=== PATIENT | female | born 1970 | race Caucasian/White ===

== ENCOUNTER 2016-07-15 16:54 | Emergency (ER) | payer MEDICARE ==
[2016-07-15] MEDS ORDERED: diphenhydrAMINE INJ 50MG/ML VIAL (J1200) As Ordered ONE (18:38)
[2016-07-15] MEDS ORDERED: MORPHINE 2 MG/ML 1ML SYRINGE As Ordered ONE (18:38)
[2016-07-15] MEDS ORDERED: METOCLOPRAMIDE INJ 10MG/2ML VIAL (J2765) As Ordered ONE (18:38)
--- NOTE | 2016-07-15 18:46 | REP ---
Clinical: Headache. History of pituitary tumor. Comparison: 05/16/2015 . Findings: The ventricles, sulci, and cisterns are normal in position and appearance. Alanis-white differentiation is maintained. No acute intracranial hemorrhage, mass/mass effect, pathology or trauma/injury. No evidence for acute infarction. No extra-axial fluid collection. The sella turcica appears normal by noncontrast CT. Calvarium is intact. Paranasal sinuses and mastoid air cells are clear. Impression: Normal noncontrast head CT. No evidence for acute intracranial pathology or trauma/injury. Signed by Mamadou Jarrett MD 07/15/2016 06:37 P
[2016-07-15 18:50] LABS: BASO # 0.1 K/mm3 (0.0-0.2); EOS # 0.1 K/mm3 (0.0-0.50); EOS % 1.9 % (0.0-3.0); LARGE UNSTAINED CELL # 0.2 K/mm3 (0.0-0.4); LARGE UNSTAINED CELL % 2.7 % (0.0-4.0); MEAN CORPUSCULAR HEMOGLOBIN 32.9 pg (27.0-33.0); MEAN CORPUSCULAR HGB CONC 34.2 g/dl (32.0-36.5); MEAN CORPUSCULAR VOLUME 96.2 fl (80.0-96.0); MONO # 0.6 K/mm3 (0.0-0.8); MONO % 8.7 % (0.0-5.0); NEUTROPHILS # 3.9 K/mm3 (1.8-7.7); NEUTROPHILS % 58.6 % (36.0-66.0); PLATELET COUNT, AUTOMATED 261 k/mm3 (150-450); RED CELL DISTRIBUTION WIDTH 12.5 % (11.5-14.5); WHITE BLOOD COUNT 6.6 K/mm3 (4.0-10.0)
[2016-07-15 19:07] LABS: ANION GAP 8 MEQ/L (8-16); BLOOD UREA NITROGEN 16 MG/DL (7-18); CALCIUM LEVEL 8.8 MG/DL (8.5-10.1); CARBON DIOXIDE LEVEL 26 MEQ/L (21-32); CHLORIDE LEVEL 109 MEQ/L (98-107); CREATININE FOR GFR 0.63 MG/DL (0.55-1.02); GLOMERULAR FILTRATION RATE > 60.0 (>58); GLUCOSE, FASTING 99 MG/DL (70-105); POTASSIUM SERUM 4.2 MEQ/L (3.5-5.1); SODIUM LEVEL 143 MEQ/L (136-145)
--- NOTE | 2016-07-15 19:50 | EDDOCDS ---
Physician Documentation [facility] Name: Joseph Harmon Age: 46 yrs Sex: Female : 1970 Arrival Date: 07/15/2016 Time: 16:54 Bed I6 / 28 Private MD: Misha Walker Disposition: 07/15/16 19:24 Discharged to Home/Self Care. Impression: Migraine without aura, not intractable. - Condition is Stable. - Discharge Instructions: General Headache Without Cause, Migraine Headache. - Medication Reconciliation, Local Pharmacy Hours form. - Follow up: Misha Walker; When: Call to arrange an appointment; Reason: Recheck today's complaints, Continuance of care. - Problem is an acute exacerbation. - Symptoms have improved. Historical: - Allergies: Codeine Sulfate (Anaphylaxis); - Home Meds: 1. Robaxin 500 mg Oral tab 4 times per day 2. Flonase 50 mcg/actuation Nasal spsn 1 spray once daily 3. Dilantin Oral 200 mg four times a day 4. baclofen 20 mg Oral tab 1 tab 3 times per day 5. Prozac 20 mg Oral cap 1 cap once daily - PMHx: Brain tumor; Cancer, Brain; Migraine Headaches; Seizure Disorder; TBI; - PSHx: Fibroid tumor removed September 2015; - Social history: Smoking status: Patient states was never smoker of tobacco. No barriers to communication noted, The patient speaks fluent Italian, Speaks appropriately for age. - Family history: Not pertinent. - : The pt / caregiver states he / she is not on anticoagulants. Home medication list is obtained from the patient. - Exposure Risk Screening:: None identified. TRANSPORTER RADIOLOGY: 07/15 17:08 LMP 06/28/2016 b Vital Signs: 16:56 BP 91 / 54 LA Sitting (auto/lg); Pulse 75; Resp 16; Temp 97.1(O); Pulse Ox 97% on R/A; bnb Weight 46.27 kg / 102.01 lbs (R); Height 5 ft. (152.40 cm) (R); Pain 9/10; 16:56 Body Mass Index 19.92 (46.27 kg, 152.40 cm) bnb MDM: 18:25 IV Saline Lock ordered. mo1 18:25 NS 0.9% 1000 ml IV at bolus once ordered. mo1 18:25 morphine 2 mg IVP once ordered. mo1 18:25 Metoclopramide 10 mg IV at 40 mg/hr once over 15 mins ordered. mo1 18:25 diphenhydrAMINE 25 mg IVP once ordered. mo1 18:26 CBC with Diff Ordered. EDMS 18:26 BMP Ordered. EDMS 18:26 CT Head Without Contrast Ordered. EDMS 18:58 Financial registration complete. gjb 19:07 CBC with Diff Reviewed. mo1 19:14 BMP Reviewed. mo1 19:19 [facility] Payment Agreement was scanned into [employer] and attached to record. gjb Administered Medications: 18:47 Drug: Metoclopramide 10 mg [metoclopramide 5 mg/mL injection solution] Route: IV; Rate: mk4 40 mg/hr; Infused Over: 15 mins; Site: right hand; 19:48 Follow up: Response: Pain is decreased mf4 18:47 Drug: diphenhydrAMINE 25 mg [diphenhydramine 50 mg/mL injection solution (0.5 mL)] mk4 Route: IVP; Site: right hand; 19:48 Follow up: Response: Pain is decreased mf4 18:48 Drug: NS 0.9% 1000 ml [sodium chloride 0.9 % intravenous solution] Route: IV; Rate: mk4 bolus; Site: right hand; 18:48 Drug: morphine 2 mg [morphine 2 mg/mL intravenous cartridge (1 mL)] Route: IVP; Site: mk4 right antecubital; 19:48 Follow up: Response: Pain is decreased mf4 Signatures: Dispatcher [employer] EDMS Vikram Reynolds,LICENSED AIRCRAFT MAINTENANCE ENGINEER LICENSED AIRCRAFT MAINTENANCE ENGINEER mf4 Adama Mckenna PA PA mo1 Terrence SchmidtRN RN Mer Newton RN RN kc3 Beck, Gabriela gjb King, Margaret RN mk4 The chart was reviewed and I authenticate all verbal orders and agree with the evaluation and treatment provided.Attachments: 19:19 [facility] Payment Agreement gjb MTDD
--- NOTE | 2016-07-15 19:51 | EDDOCDS ---
Nurse's Notes [facility] Name: Joseph Harmon Age: 46 yrs Sex: Female : 1970 Arrival Date: 07/15/2016 Time: 16:54 Bed I6 / 28 Private MD: Misha Walker Diagnosis: Migraine without aura, not intractable Presentation: 07/15 17:07 Presenting complaint: Patient states: Patient reports having migraine. Patient reports jmb that the pain is bad. Dr. Walker was not available last week so she has no medication for treatment. Patient has history of migraines. This patient has no additional risk factors. Adult Sepsis Screening: The patient does not have new or worsening altered mentation. Patient's respiratory rate is less than 22. Systolic blood pressure is greater than 100. Patient has a qSOFA score of 0- Negative Sepsis Screen. Acuity level changed due to. Suicide/Homicide risk assessment- the patient denies having any suicidal and/or homicidal ideations and does not present with any other emotional, behavioral or mental health complaints. Status: Patient is not a x ray service technician or dependent. Transition of care: patient was not received from another setting of care. 17:07 Acuity: ELIESER Level 3 [place] 17:07 Method Of Arrival: Walkin/Carried/Asstd [place] Triage Assessment: 17:08 Headache History: This patient has a history of headaches and the character of this [place] headache is like all previous headaches. General: Appears in no apparent distress, Behavior is appropriate for age, cooperative. Pain: Location: head Pain currently is 9 out of 10 on a pain scale. Pain began gradually Also complains of no other associated symptoms. HIV screening NA for this visit Offered previously. Neurological: Level of Consciousness is awake, alert, obeys commands, Oriented to person, place, time, Speech is normal, Facial symmetry appears normal, Facial symmetry: tongue is midline. Respiratory: Airway is patent Respiratory effort is even, unlabored, Respiratory pattern is regular, symmetrical. Derm: Skin is pink, warm & dry. RESIDENT ASSISTANT: 17:08 LMP 06/28/2016 b Historical: - Allergies: Codeine Sulfate (Anaphylaxis); - Home Meds: 1. Robaxin 500 mg Oral tab 4 times per day 2. Flonase 50 mcg/actuation Nasal spsn 1 spray once daily 3. Dilantin Oral 200 mg four times a day 4. baclofen 20 mg Oral tab 1 tab 3 times per day 5. Prozac 20 mg Oral cap 1 cap once daily - PMHx: Brain tumor; Cancer, Brain; Migraine Headaches; Seizure Disorder; TBI; - PSHx: Fibroid tumor removed September 2015; - Social history: Smoking status: Patient states was never smoker of tobacco. No barriers to communication noted, The patient speaks fluent Iraqi, Speaks appropriately for age. - Family history: Not pertinent. - : The pt / caregiver states he / she is not on anticoagulants. Home medication list is obtained from the patient. - Exposure Risk Screening:: None identified. Screenin:04 Screening information is obtained from the patient. Fall risk: No risks identified. kc3 Assistance ADL's: requires no assistance with activities of daily living. Abuse/DV Screen: The patient / caregiver reports he/she is: not in a situation that causes fear, pain or injury. Nutritional screening: No deficits noted. Advance Directives: Currently, there is no health care proxy. home support is adequate. Assessment: 19:03 General: Appears uncomfortable, Behavior is appropriate for age, cooperative. Pain: kc3 Location: head. Pain: Pain currently is 6 out of 10 on a pain scale. Also complains of photophobia. Neurological: Level of Consciousness is awake, alert, obeys commands, Oriented to person, place, time. Respiratory: Respiratory effort is even, unlabored. Derm: Skin is pink, warm & dry. Vital Signs: 16:56 BP 91 / 54 LA Sitting (auto/lg); Pulse 75; Resp 16; Temp 97.1(O); Pulse Ox 97% on R/A; bnb Weight 46.27 kg (R); Height 5 ft. (152.40 cm) (R); Pain 9/10; 16:56 Body Mass Index 19.92 (46.27 kg, 152.40 cm) [facility] Vitals: 16:56 Log In Time: July 15, 2016 at 16:55. [facility] ED Course: 16:55 Patient visited by Katlyn Schmidt PCA. bnb 16:55 Patient moved to Waiting b 16:56 Misha Walker is Private Physician. bnb 16:58 Patient moved to Pre RCE bnb 17:07 Triage Initiated jmb 18:06 Patient moved to Triage 3 ar3 18:11 Adama Mckenna PA is PHCP. mo1 18:11 Rosa Maria Hanks MD is Attending Physician. mo1 18:15 Patient visited by Adama Mckenna PA. mo1 18:27 Patient moved to I6 / ar3 18:42 BMP Sent. kc3 18:42 CBC with Diff Sent. kc3 18:44 Inserted saline lock: 20 gauge in right hand and blood collected. The patient tolerated kc3 the procedure well. 18:46 Patient visited by Bia Becker RN. mk4 19:04 The patient / caregiver is instructed regarding the plan of care and ED course. kc3 19:19 [facility] [place] was scanned into [employer] and attached to record. gjb 19:24 Patient visited by Bia Becker RN. mk4 19:24 Misha Walker is Referral Physician. mo1 19:26 CT Head Without Contrast Returned. EDMS 19:49 No procedures done that require assistance. mf4 Administered Medications: 18:47 Drug: Metoclopramide 10 mg [metoclopramide 5 mg/mL injection solution] Route: IV; Rate: mk4 40 mg/hr; Infused Over: 15 mins; Site: right hand; 19:48 Follow up: Response: Pain is decreased mf4 18:47 Drug: diphenhydrAMINE 25 mg [diphenhydramine 50 mg/mL injection solution (0.5 mL)] mk4 Route: IVP; Site: right hand; 19:48 Follow up: Response: Pain is decreased mf4 18:48 Drug: NS 0.9% 1000 ml [sodium chloride 0.9 % intravenous solution] Route: IV; Rate: mk4 bolus; Site: right hand; 18:48 Drug: morphine 2 mg [morphine 2 mg/mL intravenous cartridge (1 mL)] Route: IVP; Site: mk4 right antecubital; 19:48 Follow up: Response: Pain is decreased mf4 Order Results: Lab Order: CBC with Diff; SPEC'M 07/15/16 18:41 Test: WHITE BLOOD COUNT; Value: 6.6; Range: 4.0-10.0; Units: K/mm3; Status: F Test: RED BLOOD COUNT; Value: 4.00; Range: 4.00-5.40; Units: M/mm3; Status: F Test: HEMOGLOBIN; Value: 13.1; Range: 12.0-16.0; Units: g/dl; Status: F Test: HEMATOCRIT; Value: 38.4; Range: 36.0-47.0; Units: %; Status: F Test: MEAN CORPUSCULAR VOLUME; Value: 96.2; Range: 80.0-96.0; Abnormal: Above high normal; Units: fl; Status: F Test: MEAN CORPUSCULAR HEMOGLOBIN; Value: 32.9; Range: 27.0-33.0; Units: pg; Status: F Test: MEAN CORPUSCULAR HGB CONC; Value: 34.2; Range: 32.0-36.5; Units: g/dl; Status: F Test: RED CELL DISTRIBUTION WIDTH; Value: 12.5; Range: 11.5-14.5; Units: %; Status: F Test: PLATELET COUNT, AUTOMATED; Value: 261; Range: 150-450; Units: k/mm3; Status: F Test: NEUTROPHILS %; Value: 58.6; Range: 36.0-66.0; Units: %; Status: F Test: LYMPH %; Value: 27.0; Range: 24.0-44.0; Units: %; Status: F Test: MONO %; Value: 8.7; Range: 0.0-5.0; Abnormal: Above high normal; Units: %; Status: F Test: EOS %; Value: 1.9; Range: 0.0-3.0; Units: %; Status: F Test: BASO %; Value: 1.0; Range: 0.0-1.0; Units: %; Status: F Test: LARGE UNSTAINED CELL %; Value: 2.7; Range: 0.0-4.0; Units: %; Status: F Test: NEUTROPHILS #; Value: 3.9; Range: 1.8-7.7; Units: K/mm3; Status: F Test: LYMPH #; Value: 2.0; Range: 1.5-4.5; Units: K/mm3; Status: F Test: MONO #; Value: 0.6; Range: 0.0-0.8; Units: K/mm3; Status: F Test: EOS #; Value: 0.1; Range: 0.0-0.50; Units: K/mm3; Status: F Test: BASO #; Value: 0.1; Range: 0.0-0.2; Units: K/mm3; Status: F Test: LARGE UNSTAINED CELL #; Value: 0.2; Range: 0.0-0.4; Units: K/mm3; Status: F Lab Order: [facility]; SPEC'M 07/15/16 18:41 Test: GLUCOSE, FASTING; Value: 99; Range: 70-105; Units: MG/DL; Status: F Test: BLOOD UREA NITROGEN; Value: 16; Range: 7-18; Units: MG/DL; Status: F Test: CREATININE FOR GFR; Value: 0.63; Range: 0.55-1.02; Units: MG/DL; Status: F Test: GLOMERULAR FILTRATION RATE; Value: > 60.0; Range: >58; Status: F Test: SODIUM LEVEL; Value: 143; Range: 136-145; Units: MEQ/L; Status: F Test: POTASSIUM SERUM; Value: 4.2; Range: 3.5-5.1; Units: MEQ/L; Status: F Test: CHLORIDE LEVEL; Value: 109; Range: 98-107; Abnormal: Above high normal; Units: MEQ/L; Status: F Test: CARBON DIOXIDE LEVEL; Value: 26; Range: 21-32; Units: MEQ/L; Status: F Test: ANION GAP; Value: 8; Range: 8-16; Units: MEQ/L; Status: F Test: CALCIUM LEVEL; Value: 8.8; Range: 8.5-10.1; Units: MG/DL; Status: F Test Note: ; Units are mL/min/1.73 m2 Chronic Kidney Disease Staging per NKF: Stage I & II GFR >=60 Normal to Mildly Decreased Stage III GFR 30-59 Moderately Decreased Stage IV GFR 15-29 Severely Decreased Stage V GFR <15 Very Little GFR Left ESRD GFR <15 on AUCTION CLERK Radiology Order: CT Head Without Contrast Test: CT Head Without Contrast REASON FOR EXAMINATION: hx of pituitary tumor, recurring zhao; Clinical: Headache. History of pituitary tumor.; ; Comparison: 05/16/2015 .; ; Findings:; The ventricles, sulci, and cisterns are normal in position and appearance.; Alanis-white differentiation is maintained. No acute intracranial hemorrhage,; mass/mass effect, pathology or trauma/injury. No evidence for acute infarction.; No extra-axial fluid collection. The sella turcica appears normal by noncontrast; CT. Calvarium is intact. Paranasal sinuses and mastoid air cells are clear.; ; Impression:; Normal noncontrast head CT.; No evidence for acute intracranial pathology or trauma/injury.; ; ; Signed by; Mamadou Jarrett MD 07/15/2016 06:37 P; Outcome: 19:24 Discharge ordered by Provider. mo1 19:49 Discharge Assessment: Patient awake, alert and oriented x 3. No cognitive and/or mf4 functional deficits noted. Patient verbalized understanding of disposition instructions. patient administered narcotics - yes. Pt provided with safe discharge. The following High Risk Discharge criteria are identified: None. Discharged to home ambulatory. Condition: stable Condition: improved. No special radiology studies were completed. Property sent home with patient. 19:49 Patient left the ED. mf4 Signatures: Dispatcher [employer] EDMS Roseann Deleon, PROFESSOR OF ARCHITECTURE PROFESSOR OF ARCHITECTURE ar3 Vikram Reynolds,ACID ADJUSTER ACID ADJUSTER mf4 Adama Mckenna PA PA mo1 Terrence Schmidt,RN Bia Priest RN RN mk4 Crane, Kelsi, RN RN kc3 Odessa Albarran Brittney, PROFESSOR OF ARCHITECTURE PROFESSOR OF ARCHITECTURE bnb MTDD
--- NOTE | 2016-07-17 20:50 | EDDOCDS ---
Physician Documentation [facility] Name: Joseph Harmon Age: 46 yrs Sex: Female : 1970 Arrival Date: 07/15/2016 Time: 16:54 Bed I6 / 28 Private MD: Misha Walker Disposition: 07/15/16 19:24 Discharged to Home/Self Care. Impression: Migraine without aura, not intractable. - Condition is Stable. - Discharge Instructions: General Headache Without Cause, Migraine Headache. - Medication Reconciliation, Local Pharmacy Hours form. - Follow up: Misha Walker; When: Call to arrange an appointment; Reason: Recheck today's complaints, Continuance of care. - Problem is an acute exacerbation. - Symptoms have improved. Historical: - Allergies: Codeine Sulfate (Anaphylaxis); - Home Meds: 1. Robaxin 500 mg Oral tab 4 times per day 2. Flonase 50 mcg/actuation Nasal spsn 1 spray once daily 3. Dilantin Oral 200 mg four times a day 4. baclofen 20 mg Oral tab 1 tab 3 times per day 5. Prozac 20 mg Oral cap 1 cap once daily - PMHx: Brain tumor; Cancer, Brain; Migraine Headaches; Seizure Disorder; TBI; - PSHx: Fibroid tumor removed September 2015; - Social history: Smoking status: Patient states was never smoker of tobacco. No barriers to communication noted, The patient speaks fluent Macedonian, Speaks appropriately for age. - Family history: Not pertinent. - : The pt / caregiver states he / she is not on anticoagulants. Home medication list is obtained from the patient. - Exposure Risk Screening:: None identified. NIGHT ORDER SELECTOR: 07/15 17:08 LMP 06/28/2016 b Vital Signs: 16:56 BP 91 / 54 LA Sitting (auto/lg); Pulse 75; Resp 16; Temp 97.1(O); Pulse Ox 97% on R/A; bnb Weight 46.27 kg / 102.01 lbs (R); Height 5 ft. (152.40 cm) (R); Pain 9/10; 16:56 Body Mass Index 19.92 (46.27 kg, 152.40 cm) bnb MDM: 18:25 IV Saline Lock ordered. mo1 18:25 NS 0.9% 1000 ml IV at bolus once ordered. mo1 18:25 morphine 2 mg IVP once ordered. mo1 18:25 Metoclopramide 10 mg IV at 40 mg/hr once over 15 mins ordered. mo1 18:25 diphenhydrAMINE 25 mg IVP once ordered. mo1 18:26 CBC with Diff Ordered. EDMS 18:26 BMP Ordered. EDMS 18:26 CT Head Without Contrast Ordered. EDMS 18:58 Financial registration complete. gjb 19:07 CBC with Diff Reviewed. mo1 19:14 BMP Reviewed. mo1 19:19 [facility] [place] Payment Agreement was scanned into [employer] and attached to record. [facility] 07/16 10:20 T-Sheet-- Draft Copy was scanned into [employer] and attached to record. gb Administered Medications: 07/15 18:47 Drug: Metoclopramide 10 mg [metoclopramide 5 mg/mL injection solution] Route: IV; Rate: mk4 40 mg/hr; Infused Over: 15 mins; Site: right hand; 19:48 Follow up: Response: Pain is decreased mf4 18:47 Drug: diphenhydrAMINE 25 mg [diphenhydramine 50 mg/mL injection solution (0.5 mL)] mk4 Route: IVP; Site: right hand; 19:48 Follow up: Response: Pain is decreased mf4 18:48 Drug: NS 0.9% 1000 ml [sodium chloride 0.9 % intravenous solution] Route: IV; Rate: mk4 bolus; Site: right hand; 18:48 Drug: morphine 2 mg [morphine 2 mg/mL intravenous cartridge (1 mL)] Route: IVP; Site: mk4 right antecubital; 19:48 Follow up: Response: Pain is decreased mf4 Signatures: Dispatcher [employer] EDMS Bibi Cervantes, Reg Reg gb Vikram Reynolds,PICKER / PACKER PICKER / PACKER mf4 Adama Mckenna PA PA mo1 Terrence Schmidt RN RN Mer Newton RN RN tona3 Odessa Albarran Bia Garcia RN mk4 The chart was reviewed and I authenticate all verbal orders and agree with the evaluation and treatment provided.Attachments: 19:19 [facility] Payment Agreement [facility] 07/16 10:20 T-Sheet-- Draft Copy gb Chart Complete MTDD
--- NOTE | 2016-07-17 20:50 | EDDOCDS ---
Physician Documentation [facility] Name: Joseph Harmon Age: 46 yrs Sex: Female : 1970 Arrival Date: 07/15/2016 Time: 16:54 Bed I6 / 28 Private MD: Misha Walker Disposition: 07/15/16 19:24 Discharged to Home/Self Care. Impression: Migraine without aura, not intractable. - Condition is Stable. - Discharge Instructions: General Headache Without Cause, Migraine Headache. - Medication Reconciliation, Local Pharmacy Hours form. - Follow up: Misha Walker; When: Call to arrange an appointment; Reason: Recheck today's complaints, Continuance of care. - Problem is an acute exacerbation. - Symptoms have improved. Historical: - Allergies: Codeine Sulfate (Anaphylaxis); - Home Meds: 1. Robaxin 500 mg Oral tab 4 times per day 2. Flonase 50 mcg/actuation Nasal spsn 1 spray once daily 3. Dilantin Oral 200 mg four times a day 4. baclofen 20 mg Oral tab 1 tab 3 times per day 5. Prozac 20 mg Oral cap 1 cap once daily - PMHx: Brain tumor; Cancer, Brain; Migraine Headaches; Seizure Disorder; TBI; - PSHx: Fibroid tumor removed September 2015; - Social history: Smoking status: Patient states was never smoker of tobacco. No barriers to communication noted, The patient speaks fluent Czech, Speaks appropriately for age. - Family history: Not pertinent. - : The pt / caregiver states he / she is not on anticoagulants. Home medication list is obtained from the patient. - Exposure Risk Screening:: None identified. ENGINE ASSEMBLY SUPERVISOR: 07/15 17:08 LMP 06/28/2016 b Vital Signs: 16:56 BP 91 / 54 LA Sitting (auto/lg); Pulse 75; Resp 16; Temp 97.1(O); Pulse Ox 97% on R/A; bnb Weight 46.27 kg / 102.01 lbs (R); Height 5 ft. (152.40 cm) (R); Pain 9/10; 16:56 Body Mass Index 19.92 (46.27 kg, 152.40 cm) bnb MDM: 18:25 IV Saline Lock ordered. mo1 18:25 NS 0.9% 1000 ml IV at bolus once ordered. mo1 18:25 morphine 2 mg IVP once ordered. mo1 18:25 Metoclopramide 10 mg IV at 40 mg/hr once over 15 mins ordered. mo1 18:25 diphenhydrAMINE 25 mg IVP once ordered. mo1 18:26 CBC with Diff Ordered. EDMS 18:26 BMP Ordered. EDMS 18:26 CT Head Without Contrast Ordered. EDMS 18:58 Financial registration complete. gjb 19:07 CBC with Diff Reviewed. mo1 19:14 BMP Reviewed. mo1 19:19 [facility] [place] Agreement was scanned into [employer] and attached to record. [facility] 07/16 10:20 T-Sheet-- Draft Copy was scanned into [employer] and attached to record. gb Administered Medications: 07/15 18:47 Drug: Metoclopramide 10 mg [metoclopramide 5 mg/mL injection solution] Route: IV; Rate: mk4 40 mg/hr; Infused Over: 15 mins; Site: right hand; 19:48 Follow up: Response: Pain is decreased mf4 18:47 Drug: diphenhydrAMINE 25 mg [diphenhydramine 50 mg/mL injection solution (0.5 mL)] mk4 Route: IVP; Site: right hand; 19:48 Follow up: Response: Pain is decreased mf4 18:48 Drug: NS 0.9% 1000 ml [sodium chloride 0.9 % intravenous solution] Route: IV; Rate: mk4 bolus; Site: right hand; 18:48 Drug: morphine 2 mg [morphine 2 mg/mL intravenous cartridge (1 mL)] Route: IVP; Site: mk4 right antecubital; 19:48 Follow up: Response: Pain is decreased mf4 Signatures: Dispatcher [employer] EDMS Bibi Cervantes, Reg Reg gb Vikram Reynolds,SOURCING INTERNSHIP SOURCING INTERNSHIP mf4 Adama Mckenna PA PA mo1 Terrence Schmidt RN RN Mer Newton RN RN tona3 Odessa Albarran Bia Garcia RN mk4 The chart was reviewed and I authenticate all verbal orders and agree with the evaluation and treatment provided.Attachments: 19:19 [facility] Payment Agreement [facility] 07/16 10:20 T-Sheet-- Draft Copy gb Chart Complete MTDD
--- NOTE | 2016-07-17 20:51 | EDDOCDS ---
Nurse's Notes [facility] Name: Joseph Harmon Age: 46 yrs Sex: Female : 1970 Arrival Date: 07/15/2016 Time: 16:54 Bed I6 / 28 Private MD: Misha Walker Diagnosis: Migraine without aura, not intractable Presentation: 07/15 17:07 Presenting complaint: Patient states: Patient reports having migraine. Patient reports jmb that the pain is bad. Dr. Walker was not available last week so she has no medication for treatment. Patient has history of migraines. This patient has no additional risk factors. Adult Sepsis Screening: The patient does not have new or worsening altered mentation. Patient's respiratory rate is less than 22. Systolic blood pressure is greater than 100. Patient has a qSOFA score of 0- Negative Sepsis Screen. Acuity level changed due to. Suicide/Homicide risk assessment- the patient denies having any suicidal and/or homicidal ideations and does not present with any other emotional, behavioral or mental health complaints. Status: Patient is not a computer service technician or dependent. Transition of care: patient was not received from another setting of care. 17:07 Acuity: ELIESER Level 3 [facility] 17:07 Method Of Arrival: Walkin/Carried/Asstd [facility] Triage Assessment: 17:08 Headache History: This patient has a history of headaches and the character of this [facility] headache is like all previous headaches. General: Appears in no apparent distress, Behavior is appropriate for age, cooperative. Pain: Location: head Pain currently is 9 out of 10 on a pain scale. Pain began gradually Also complains of no other associated symptoms. HIV screening NA for this visit Offered previously. Neurological: Level of Consciousness is awake, alert, obeys commands, Oriented to person, place, time, Speech is normal, Facial symmetry appears normal, Facial symmetry: tongue is midline. Respiratory: Airway is patent Respiratory effort is even, unlabored, Respiratory pattern is regular, symmetrical. Derm: Skin is pink, warm & dry. 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 Robaxin 500 mg Oral tab 4 times per day 2. Flonase 50 mcg/actuation Nasal spsn 1 spray once daily 3. Dilantin Oral 200 mg four times a day 4. baclofen 20 mg Oral tab 1 tab 3 times per day 5. Prozac 20 mg Oral cap 1 cap once daily - PMHx: Brain tumor; Cancer, Brain; Migraine Headaches; Seizure Disorder; TBI; - PSHx: Fibroid tumor removed September 2015; - Social history: Smoking status: Patient states was never smoker of tobacco. No barriers to communication noted, The patient speaks fluent [place]er, Speaks appropriately for age. - Family history: Not pertinent. - : The pt / caregiver states he / she is not on anticoagulants. Home medication list is obtained from the patient. - Exposure Risk Screening:: None identified. Screenin:04 Screening information is obtained from the patient. Fall risk: No risks identified. kc3 Assistance ADL's: requires no assistance with activities of daily living. Abuse/DV Screen: The patient / caregiver reports he/she is: not in a situation that causes fear, pain or injury. Nutritional screening: No deficits noted. Advance Directives: Currently, there is no health care proxy. home support is adequate. Assessment: 19:03 General: Appears uncomfortable, Behavior is appropriate for age, cooperative. Pain: kc3 Location: head. Pain: Pain currently is 6 out of 10 on a pain scale. Also complains of photophobia. Neurological: Level of Consciousness is awake, alert, obeys commands, Oriented to person, place, time. Respiratory: Respiratory effort is even, unlabored. Derm: Skin is pink, warm & dry. Vital Signs: 16:56 BP 91 / 54 LA Sitting (auto/lg); Pulse 75; Resp 16; Temp 97.1(O); Pulse Ox 97% on R/A; bnb Weight 46.27 kg (R); Height 5 ft. (152.40 cm) (R); Pain 9/10; 16:56 Body Mass Index 19.92 (46.27 kg, 152.40 cm) [facility] Vitals: 16:56 Log In Time: July 15, 2016 at 16:55. [facility] ED Course: 16:55 Patient visited by Katlyn Schmidt PCA. bnb 16:55 Patient moved to Waiting b 16:56 Misha Walker is Private Physician. bnb 16:58 Patient moved to Pre RCE bnb 17:07 Triage Initiated jmb 18:06 Patient moved to Triage 3 ar3 18:11 Adama Mckenna PA is PHCP. mo1 18:11 Rosa Maria Hanks MD is Attending Physician. mo1 18:15 Patient visited by Adama Mckenna PA. mo1 18:27 Patient moved to I6 / 28 ar3 18:42 BMP Sent. kc3 18:42 CBC with Diff Sent. kc3 18:44 Inserted saline lock: 20 gauge in right hand and blood collected. The patient tolerated kc3 the procedure well. 18:46 Patient visited by Bia Becker RN. mk4 19:04 The patient / caregiver is instructed regarding the plan of care and ED course. kc3 19:19 [facility] [place] Payment Agreement was scanned into [employer] and attached to record. gjb 19:24 Patient visited by Bia Becker RN. mk4 19:24 Misha Walker is Referral Physician. mo1 19:26 CT Head Without Contrast Returned. EDMS 19:49 No procedures done that require assistance. mf4 20:23 Patient name changed from Charrie\S\Zoraida\S\Harmon\S\ to Charrie\S\L\S\Harmon. EDMS 02 10:20 T-Sheet-- Draft Copy was scanned into [employer] and attached to record. gb Administered Medications: 02 18:47 Drug: Metoclopramide 10 mg [metoclopramide 5 mg/mL injection solution] Route: IV; Rate: mk4 40 mg/hr; Infused Over: 15 mins; Site: right hand; 19:48 Follow up: Response: Pain is decreased mf4 18:47 Drug: diphenhydrAMINE 25 mg [diphenhydramine 50 mg/mL injection solution (0.5 mL)] mk4 Route: IVP; Site: right hand; 19:48 Follow up: Response: Pain is decreased mf4 18:48 Drug: NS 0.9% 1000 ml [sodium chloride 0.9 % intravenous solution] Route: IV; Rate: mk4 bolus; Site: right hand; 18:48 Drug: morphine 2 mg [morphine 2 mg/mL intravenous cartridge (1 mL)] Route: IVP; Site: mk4 right antecubital; 19:48 Follow up: Response: Pain is decreased mf4 Order Results: Lab Order: CBC with Diff; SPEC'M 07/15/16 18:41 Test: WHITE BLOOD COUNT; Value: 6.6; Range: 4.0-10.0; Units: K/mm3; Status: F Test: RED BLOOD COUNT; Value: 4.00; Range: 4.00-5.40; Units: M/mm3; Status: F Test: HEMOGLOBIN; Value: 13.1; Range: 12.0-16.0; Units: g/dl; Status: F Test: HEMATOCRIT; Value: 38.4; Range: 36.0-47.0; Units: %; Status: F Test: MEAN CORPUSCULAR VOLUME; Value: 96.2; Range: 80.0-96.0; Abnormal: Above high normal; Units: fl; Status: F Test: MEAN CORPUSCULAR HEMOGLOBIN; Value: 32.9; Range: 27.0-33.0; Units: pg; Status: F Test: MEAN CORPUSCULAR HGB CONC; Value: 34.2; Range: 32.0-36.5; Units: g/dl; Status: F Test: RED CELL DISTRIBUTION WIDTH; Value: 12.5; Range: 11.5-14.5; Units: %; Status: F Test: PLATELET COUNT, AUTOMATED; Value: 261; Range: 150-450; Units: k/mm3; Status: F Test: NEUTROPHILS %; Value: 58.6; Range: 36.0-66.0; Units: %; Status: F Test: LYMPH %; Value: 27.0; Range: 24.0-44.0; Units: %; Status: F Test: MONO %; Value: 8.7; Range: 0.0-5.0; Abnormal: Above high normal; Units: %; Status: F Test: EOS %; Value: 1.9; Range: 0.0-3.0; Units: %; Status: F Test: BASO %; Value: 1.0; Range: 0.0-1.0; Units: %; Status: F Test: LARGE UNSTAINED CELL %; Value: 2.7; Range: 0.0-4.0; Units: %; Status: F Test: NEUTROPHILS #; Value: 3.9; Range: 1.8-7.7; Units: K/mm3; Status: F Test: LYMPH #; Value: 2.0; Range: 1.5-4.5; Units: K/mm3; Status: F Test: MONO #; Value: 0.6; Range: 0.0-0.8; Units: K/mm3; Status: F Test: EOS #; Value: 0.1; Range: 0.0-0.50; Units: K/mm3; Status: F Test: BASO #; Value: 0.1; Range: 0.0-0.2; Units: K/mm3; Status: F Test: LARGE UNSTAINED CELL #; Value: 0.2; Range: 0.0-0.4; Units: K/mm3; Status: F Lab Order: [facility]; SPEC'M 07/15/16 18:41 Test: GLUCOSE, FASTING; Value: 99; Range: 70-105; Units: MG/DL; Status: F Test: BLOOD UREA NITROGEN; Value: 16; Range: 7-18; Units: MG/DL; Status: F Test: CREATININE FOR GFR; Value: 0.63; Range: 0.55-1.02; Units: MG/DL; Status: F Test: GLOMERULAR FILTRATION RATE; Value: > 60.0; Range: >58; Status: F Test: SODIUM LEVEL; Value: 143; Range: 136-145; Units: MEQ/L; Status: F Test: POTASSIUM SERUM; Value: 4.2; Range: 3.5-5.1; Units: MEQ/L; Status: F Test: CHLORIDE LEVEL; Value: 109; Range: 98-107; Abnormal: Above high normal; Units: MEQ/L; Status: F Test: CARBON DIOXIDE LEVEL; Value: 26; Range: 21-32; Units: MEQ/L; Status: F Test: ANION GAP; Value: 8; Range: 8-16; Units: MEQ/L; Status: F Test: CALCIUM LEVEL; Value: 8.8; Range: 8.5-10.1; Units: MG/DL; Status: F Test Note: ; Units are mL/min/1.73 m2 Chronic Kidney Disease Staging per NKF: Stage I & II GFR >=60 Normal to Mildly Decreased Stage III GFR 30-59 Moderately Decreased Stage IV GFR 15-29 Severely Decreased Stage V GFR <15 Very Little GFR Left ESRD GFR <15 on RETIREMENT ASSISTANT Radiology Order: CT Head Without Contrast Test: CT Head Without Contrast REASON FOR EXAMINATION: hx of pituitary tumor, recurring zhao; Clinical: Headache. History of pituitary tumor.; ; Comparison: 05/16/2015 .; ; Findings:; The ventricles, sulci, and cisterns are normal in position and appearance.; Alanis-white differentiation is maintained. No acute intracranial hemorrhage,; mass/mass effect, pathology or trauma/injury. No evidence for acute infarction.; No extra-axial fluid collection. The sella turcica appears normal by noncontrast; CT. Calvarium is intact. Paranasal sinuses and mastoid air cells are clear.; ; Impression:; Normal noncontrast head CT.; No evidence for acute intracranial pathology or trauma/injury.; ; ; Signed by; Mamadou Jarrett MD 07/15/2016 06:37 P; Outcome: 19:24 Discharge ordered by Provider. mo1 19:49 Discharge Assessment: Patient awake, alert and oriented x 3. No cognitive and/or mf4 functional deficits noted. Patient verbalized understanding of disposition instructions. patient administered narcotics - yes. Pt provided with safe discharge. The following High Risk Discharge criteria are identified: None. Discharged to home ambulatory. Condition: stable Condition: improved. No special radiology studies were completed. Property sent home with patient. 19:49 Patient left the ED. mf4 Signatures: Dispatcher [employer] EDMS Bibi Cervantes, Reg Reg gb Adrienne, Roseann, RESIDENCE HALL DIRECTOR RESIDENCE HALL DIRECTOR ar3 Vikram Reynolds,GLOBAL PRESIDENT GLOBAL PRESIDENT mf4 Adama Mckenna PA PA mo1 Terrence Schmidt, RN RN Bia Echeverria RN RN mkMer Caraballo RN RN tona3 Odessa Albarran Brittney, RESIDENCE HALL DIRECTOR RESIDENCE HALL DIRECTOR bnb Chart Complete MTDD
== END 2016-07-15 19:49 | disposition home or self-care (01) ==
LOC: M ED 16:54
DX: G43.909 Migraine, unspecified, not intractable, without status migrainosus (principal); Z85.841 Personal history of malignant neoplasm of brain; Z87.820 Personal history of traumatic brain injury; G40.909 Epilepsy, unspecified, not intractable, without status epilepticus; Z79.899 Other long term (current) drug therapy; Z88.5 Allergy status to narcotic agent
CPT/HCPCS: 36415; 70450; 80048; 85025; 99284; J1200; J2765

== ENCOUNTER 2016-09-15 11:59 | Emergency (ER) | payer MEDICARE ==
[~2016-09-15] VITALS: Ht 152.4 cm; Wt 54.9 kg
[2016-09-15 11:59] VITALS: BP 110/68
[2016-09-15] MEDS ORDERED: ALPR0.5T3 (12:10)
[2016-09-15] MEDS ORDERED: FLUO20CA9 (12:10)
[2016-09-15] MEDS ORDERED: PHEN100C PO (12:10)
--- NOTE | 2016-09-15 12:38 | REP ---
Right foot four views : There is no fracture or dislocation. Mineralization and joint spaces are normal. There are no calcifications or foreign bodies. Impression: Negative right foot . 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 Signed by Clark Garrett MD 09/15/2016 12:29 P
== END 2016-09-15 14:11 | disposition home or self-care (01) ==
LOC: M ED 13:07
DX: S90.31XA Contusion of right foot, initial encounter (principal); V09.00XA Pedestrian injured in nontraffic accident involving unspecified motor vehicles, initial encounter; Y92.410 Unspecified street and highway as the place of occurrence of the external cause; Y93.89 Activity, other specified; Y99.9 Unspecified external cause status

== ENCOUNTER 2016-10-17 08:42 | Emergency (ER) | payer MEDICARE ==
[~2016-10-17] VITALS: Ht 152.4 cm; Wt 48.1 kg
[~2016-10-17 08:42] MED LIST: ALPR0.5T3; FLUO20CA9; PHEN100C PO
[2016-10-17] MEDS ORDERED: IBUP80TA PO (09:15)
[2016-10-17] MEDS ORDERED: IBUPROFEN 800 MG TAB PO ONE (09:15)
--- NOTE | 2016-10-17 10:17 | REP ---
Clinical: Trauma. Technique: AP, lateral, bilateral oblique views right wrist . Findings: The carpal bones, surrounding osseous structures, soft tissues, and joint spaces are normal. There is no evidence for acute fracture or dislocation. No subcutaneous emphysema or radiodense foreign body. Impression: No acute fracture or dislocation Signed by Mamadou Jarrett MD 10/17/2016 10:08 A
--- NOTE | 2016-10-17 10:18 | REP ---
Clinical: Trauma. Technique: AP, lateral, bilateral oblique views right hand . Findings: The osseous structures and joint spaces are intact and normal. There is no evidence for acute fracture or dislocation. Surrounding soft tissues are unremarkable. No subcutaneous emphysema or radiodense foreign body. Impression: Normal examination. No acute fracture or dislocation. Signed by Mamadou Jarrett MD 10/17/2016 10:09 A
[2016-10-17 10:53] VITALS: BP 110/82
== END 2016-10-17 10:56 | disposition home or self-care (01) ==
LOC: M ED 09:49
DX: S63.501A Unspecified sprain of right wrist, initial encounter (principal); W01.198A Fall on same level from slipping, tripping and stumbling with subsequent striking against other object, initial encounter; Y92.099 Unspecified place in other non-institutional residence as the place of occurrence of the external cause; Y93.01 Activity, walking, marching and hiking; Y99.9 Unspecified external cause status

== ENCOUNTER 2016-12-25 13:04 | Emergency (ER) | payer MEDICARE, OTHER ==
[~2016-12-25] VITALS: Ht 152.4 cm; Wt 62.9 kg
[~2016-12-25 13:04] MED LIST changes: +FLUO20CA19; -FLUO20CA9; +IBUP80TA PO
[2016-12-25] MEDS ORDERED: IBUPROFEN 600 MG TAB PO ONE (14:00)
--- NOTE | 2016-12-25 14:21 | REP ---
RIGHT FOOT COMPLETE: 12/25/2016 COMPARISON: 09/15/2016 CLINICAL HISTORY: Trauma. Four views show metatarsals and phalanges without fracture or focal lesion. MTP and IP joints intact and unchanged. There is an accessory ossicle adjacent to the navicular as before. Tarsal bones and articulations were also preserved. Subtalar joints, talonavicular and calcaneocuboid articulations intact. No heel spurs. IMPRESSION: 1. No visible or displaced fracture, avulsion, subluxation, foreign body or other acute finding. Signed by Darion Altman MD 12/25/2016 07:11 P
[2016-12-25] MEDS ORDERED: IBUP-1022 PO (14:31)
[2016-12-25 14:37] VITALS: BP 99/60
== END 2016-12-25 14:40 | disposition home or self-care (01) ==
LOC: M ED 13:04
DX: S90.31XA Contusion of right foot, initial encounter (principal); V09.00XA Pedestrian injured in nontraffic accident involving unspecified motor vehicles, initial encounter; Y92.481 Parking lot as the place of occurrence of the external cause; Y93.89 Activity, other specified; Y99.0 Civilian activity done for income or pay

== ENCOUNTER 2016-12-27 00:07 | Emergency (ER) | payer MEDICARE, OTHER ==
[~2016-12-27] VITALS: Ht 152.4 cm; Wt 55.0 kg
[~2016-12-27 00:07] MED LIST changes: +IBUP-1022 PO
[2016-12-27] MEDS ORDERED: ACETAMINOPHEN 325 MG TAB PO ONE (01:30)
[2016-12-27] MEDS ORDERED: IBUPROFEN 800 MG TAB PO ONE (01:30)
[2016-12-27 01:54] VITALS: BP 102/59
--- NOTE | 2016-12-27 08:10 | REP ---
Clinical: pain. Technique: AP, lateral, bilateral oblique views right ankle. Findings: Mild swelling is appreciated. No acute fracture or dislocation. Skeletal structures and joint spaces are intact and normal. Ankle mortise appears stable. No subcutaneous emphysema or radiodense foreign body. Impression: Mild swelling. Otherwise, normal right ankle radiograph series. Signed by Mamadou Jarrett MD 12/27/2016 01:56 A
== END 2016-12-27 01:56 | disposition home or self-care (01) ==
LOC: M ED 00:07
DX: S90.31XD Contusion of right foot, subsequent encounter (principal); S93.401D Sprain of unspecified ligament of right ankle, subsequent encounter; F41.9 Anxiety disorder, unspecified; F32.9 Major depressive disorder, single episode, unspecified; Z86.73 Personal history of transient ischemic attack (TIA), and cerebral infarction without residual deficits; V09.00XD Pedestrian injured in nontraffic accident involving unspecified motor vehicles, subsequent encounter; Y92.481 Parking lot as the place of occurrence of the external cause; Y93.89 Activity, other specified; Y99.0 Civilian activity done for income or pay

== ENCOUNTER → 2017-02-28 | Outpatient (CLI) | payer MEDICARE ==
[2017-02-28 21:12] LABS: CONTROL LINE HCG INT CTR LINE PRESENT
== END ==
LOC: M LAB 20:33
PROVIDERS: ATTEND Physician Assistant
DX: N91.2 Amenorrhea, unspecified (principal)

== ENCOUNTER 2017-04-29 12:38 | Emergency (ER) | payer MEDICARE ==
[~2017-04-29] VITALS: Ht 152.4 cm; Wt 60.0 kg
[2017-04-29 12:38] VITALS: BP 99/54
[2017-04-29] MEDS ORDERED: CYCL10TA (12:52)
[2017-04-29] MEDS ORDERED: AMOX875T (12:52)
[2017-04-29] MEDS ORDERED: IBUP-1114 PO (12:52)
[2017-04-29] MEDS ORDERED: NORCOTAB PO (15:43)
[2017-04-29] MEDS ORDERED: ROBA500T PO (15:43)
== END 2017-04-29 15:54 | disposition home or self-care (01) ==
LOC: M ED 12:38
DX: S29.012A Strain of muscle and tendon of back wall of thorax, initial encounter (principal); X58.XXXA Exposure to other specified factors, initial encounter; Y92.89 Other specified places as the place of occurrence of the external cause; Y93.89 Activity, other specified; Y99.8 Other external cause status; R56.9 Unspecified convulsions; Z86.73 Personal history of transient ischemic attack (TIA), and cerebral infarction without residual deficits; Z88.5 Allergy status to narcotic agent; Z87.891 Personal history of nicotine dependence

== ENCOUNTER 2017-05-29 11:23 | Emergency (ER) | payer OTHER, MEDICARE | END 2017-05-29 12:15 | disposition home or self-care (01) | LOC: M ED 11:23 | DX: M77.12 Lateral epicondylitis, left elbow (principal); F41.9 Anxiety disorder, unspecified; F33.9 Major depressive disorder, recurrent, unspecified; R56.9 Unspecified convulsions; Z79.899 Other long term (current) drug therapy; Z88.5 Allergy status to narcotic agent | CPT/HCPCS: 99283 ==

== ENCOUNTER → 2018-01-09 | Outpatient (CLI) | payer MEDICARE ==
[2018-01-09 10:10] LABS: HEMATOCRIT 40.3 % (36.0-47.0); HEMOGLOBIN 13.6 g/dl (12.0-15.5); MEAN CORPUSCULAR HEMOGLOBIN 31.8 pg (27.0-33.0); MEAN CORPUSCULAR HGB CONC 33.7 g/dl (32.0-36.5); MEAN CORPUSCULAR VOLUME 94.2 fl (80.0-96.0); PLATELET COUNT, AUTOMATED 234 10^3/uL (150-450); RED BLOOD COUNT 4.28 10^6/uL (4.00-5.40); RED CELL DISTRIBUTION WIDTH 12.6 % (11.5-14.5)
[2018-01-09 10:40] LABS: ESTIMATED AVERAGE GLUCOSE 103 MG/DL (60-110); HEMOGLOBIN A1c 5.2 %
[2018-01-09 10:45] LABS: TOTAL 25(OH) VITAMIN D 58.8 NG/ML (30.0-100.0)
[2018-01-09 10:48] LABS: ALBUMIN 3.7 GM/DL (3.2-5.2); ALBUMIN/GLOBULIN RATIO 1.19 (1.00-1.93); ALKALINE PHOSPHATASE 65 U/L (45-117); ALT/SGPT 22 U/L (12-78); ANION GAP 6 MEQ/L (8-16); AST/SGOT 11 U/L (7-37); BILIRUBIN,TOTAL 0.3 MG/DL (0.2-1.0); BLOOD UREA NITROGEN 15 MG/DL (7-18); CALCIUM LEVEL 8.6 MG/DL (8.5-10.1); CARBON DIOXIDE LEVEL 28 MEQ/L (21-32); CHLORIDE LEVEL 110 MEQ/L (98-107); CHOLESTEROL LEVEL 206 MG/DL (<200); CHOLESTEROL RISK RATIO 3.551 (<5); CREATININE FOR GFR 0.65 MG/DL (0.55-1.30); GLOMERULAR FILTRATION RATE > 60.0 (>58); GLUCOSE, FASTING 90 MG/DL (70-100); HDL CHOLESTEROL 58 MG/DL (>40); LDL CHOLESTEROL 113.4 MG/DL (<100); NON-HDL-C 148 MG/DL; POTASSIUM SERUM 4.1 MEQ/L (3.5-5.1); RHEUMATOID FACTOR QUANT < 10.0 IU/ML (<15.0); SODIUM LEVEL 144 MEQ/L (136-145); TOTAL PROTEIN 6.8 GM/DL (6.4-8.2); TRIGLYCERIDES LEVEL 173 MG/DL (<150); URIC ACID 3.9 MG/DL (2.6-6.0)
== END ==
LOC: M LAB 09:51
DX: I10 Essential (primary) hypertension (principal); R53.83 Other fatigue; E03.9 Hypothyroidism, unspecified
CPT/HCPCS: 84443

== ENCOUNTER 2018-11-13 14:28 | Emergency (ER) | payer MEDICAID, SELFPAY ==
[~2018-11-13] VITALS: Ht 154.9 cm; Wt 57.3 kg
[2018-11-13 14:28] VITALS: BP 106/65
[~2018-11-13 14:28] MED LIST changes: +AMOX875T; +BACL1TAB9 PO; +CYCL10TA; +HYDR-3715 PO; +IBUP-1114 PO; +KEPP1TAB PO; +MOBI4TAB PO; +PRED20TA PO; +ROBA500T PO; +ZANA4TAB PO
[2018-11-13] MEDS ORDERED: CEFU1TAB22 (14:34)
== END 2018-11-13 16:27 | disposition left against medical advice (07) ==
LOC: M ED 14:28
DX: Z53.29 Procedure and treatment not carried out because of patient's decision for other reasons (principal)

== ENCOUNTER → 2021-10-11 | Outpatient (CLI) | payer MEDICAID ==
[~2021-10-11] MED LIST changes: +CEFU1TAB22; +CYCL-707; -CYCL10TA; -FLUO20CA19; +FLUO20CA22
[2021-10-11 09:35] LABS: HEMATOCRIT 42.1 % (36.0-47.0); HEMOGLOBIN 13.6 g/dl (12.0-15.5); MEAN CORPUSCULAR HEMOGLOBIN 30.8 pg (27.0-33.0); MEAN CORPUSCULAR HGB CONC 32.3 g/dl (32.0-36.5); MEAN CORPUSCULAR VOLUME 95.5 fl (80.0-96.0); PLATELET COUNT, AUTOMATED 244 10^3/uL (150-450); RED BLOOD COUNT 4.41 10^6/uL (4.00-5.40); WHITE BLOOD COUNT 7.2 10^3/uL (4.0-10.0)
[2021-10-11 09:54] LABS: HEMOGLOBIN A1c 5.2 %
[2021-10-11 10:08] LABS: ALBUMIN 3.6 GM/DL (3.2-5.2); ALT/SGPT 19 U/L (12-78); BILIRUBIN,TOTAL 0.3 MG/DL (0.2-1.0); BLOOD UREA NITROGEN 17 MG/DL (7-18); CALCIUM LEVEL 9.5 MG/DL (8.5-10.1); CARBON DIOXIDE LEVEL 28 MEQ/L (21-32); CHLORIDE LEVEL 111 MEQ/L (98-107); CHOLESTEROL LEVEL 224 MG/DL (<200); CHOLESTEROL RISK RATIO 4.148 (<5); CREATININE FOR GFR 0.67 MG/DL (0.55-1.30); GLOMERULAR FILTRATION RATE > 60.0 (>51); GLUCOSE, FASTING 96 MG/DL (70-100); HDL CHOLESTEROL 54 MG/DL (>40); LDL CHOLESTEROL 139 MG/DL (<100); NON-HDL-C 170 MG/DL; POTASSIUM SERUM 4.2 MEQ/L (3.5-5.1); SODIUM LEVEL 144 MEQ/L (136-145); TOTAL 25(OH) VITAMIN D 98.7 NG/ML (30.0-100.0); TOTAL PROTEIN 6.5 GM/DL (6.4-8.2); TRIGLYCERIDES LEVEL 154 MG/DL (<150)
== END ==
LOC: M LAB 08:42
PROVIDERS: ATTEND Family Medicine
DX: D64.9 Anemia, unspecified (principal); R53.83 Other fatigue; E03.9 Hypothyroidism, unspecified

== ENCOUNTER → 2022-07-22 | Outpatient (CLI) | payer MEDICAID ==
[2022-07-22 08:50] LABS: HEMATOCRIT 41.3 % (36.0-47.0); HEMOGLOBIN 13.5 g/dl (12.0-15.5); MEAN CORPUSCULAR HEMOGLOBIN 31.6 pg (27.0-33.0); MEAN CORPUSCULAR HGB CONC 32.7 g/dl (32.0-36.5); MEAN CORPUSCULAR VOLUME 96.7 fl (80.0-96.0); PLATELET COUNT, AUTOMATED 268 10^3/uL (150-450); RED BLOOD COUNT 4.27 10^6/uL (4.00-5.40); WHITE BLOOD COUNT 8.1 10^3/uL (4.0-10.0)
[2022-07-22 08:55] LABS: ERYTHROCYTE SEDIMENTATION RATE 18 mm/hr (0-30)
[2022-07-22 09:17] LABS: RHEUMATOID FACTOR QUANT 7.1 IU/ML (<14)
[2022-07-22 09:23] LABS: ALBUMIN 3.7 G/DL (3.2-5.2); ALKALINE PHOSPHATASE 74 U/L (46-116); ALT/SGPT 18 U/L (7.0-40); AST/SGOT 24 U/L (<34); BILIRUBIN,TOTAL 0.4 MG/DL (0.3-1.2); BLOOD UREA NITROGEN 13 MG/DL (9-23); CALCIUM LEVEL 9.3 MG/DL (8.5-10.1); CARBON DIOXIDE LEVEL 31 MMOL/L (20-31); CHLORIDE LEVEL 103 MMOL/L (98-107); CHOLESTEROL LEVEL 250 MG/DL (<200); CHOLESTEROL RISK RATIO 4.12 (<5); CREATININE FOR GFR 0.66 MG/DL (0.55-1.30); GLOMERULAR FILTRATION RATE > 60.0 (>51); GLUCOSE, FASTING 90 MG/DL (60-100); HDL CHOLESTEROL 60.6 MG/DL (>40); NON-HDL-C 189 MG/DL; POTASSIUM SERUM 4.5 MMOL/L (3.5-5.1); SODIUM LEVEL 139 MMOL/L (136-145); THYROID STIMULATING HORMONE 1.374 uIU/ML (0.55-4.78); THYROXINE (T4) 6.1 UG/DL (4.5-10.9); TOTAL T3 88.8 NG/DL (60.0-181.0)
[2022-07-22 09:46] LABS: LDL CHOLESTEROL 142.8 MG/DL (<100); TOTAL PROTEIN 6.5 G/DL (5.7-8.2); TRIGLYCERIDES LEVEL 233 MG/DL (<150)
[2022-07-22 10:05] LABS: URIC ACID 4.5 MG/DL (3.1-7.8)
== END ==
LOC: M LAB 08:18
PROVIDERS: ATTEND Family Medicine
DX: D64.9 Anemia, unspecified (principal); R53.83 Other fatigue; E03.9 Hypothyroidism, unspecified

== ENCOUNTER 2023-07-21 09:47 | Emergency (ER) | payer MEDICAID, SELFPAY ==
[~2023-07-21] VITALS: Ht 152.4 cm; Wt 48.2 kg
[~2023-07-21 09:47] MED LIST changes: +EFFE150C3 PO; +EFFE75CA2 PO; +MONT-5 PO; +PROG1CAP8 PO
[2023-07-21 11:15] VITALS: BP 114/79
[2023-07-21 11:17] VITALS: O2SAT 98
[2023-07-21 11:34] VITALS: TEMP 98.7
== END 2023-07-21 11:36 | disposition home or self-care (01) ==
LOC: M ED 09:47
DX: S80.01XA Contusion of right knee, initial encounter (principal); W01.0XXA Fall on same level from slipping, tripping and stumbling without subsequent striking against object, initial encounter; Y92.009 Unspecified place in unspecified non-institutional (private) residence as the place of occurrence of the external cause; Y93.01 Activity, walking, marching and hiking; Y99.8 Other external cause status; F41.9 Anxiety disorder, unspecified; F32.A Depression, unspecified; Z88.5 Allergy status to narcotic agent; K21.9 Gastro-esophageal reflux disease without esophagitis; Z79.899 Other long term (current) drug therapy

== ENCOUNTER → 2023-11-10 | Outpatient (CLI) | payer SELFPAY ==
[~2023-11-10] MED LIST changes: +FLUO-365; -FLUO20CA22
[2023-11-10 08:27] LABS: HEMATOCRIT 38.4 % (36.0-47.0); HEMOGLOBIN 12.7 g/dl (12.0-15.5); MEAN CORPUSCULAR HEMOGLOBIN 31.6 pg (27.0-33.0); MEAN CORPUSCULAR HGB CONC 33.1 g/dl (32.0-36.5); MEAN CORPUSCULAR VOLUME 95.5 fl (80.0-96.0); PLATELET COUNT, AUTOMATED 250 10^3/uL (150-450); RED BLOOD COUNT 4.02 10^6/uL (4.00-5.40); WHITE BLOOD COUNT 8.6 10^3/uL (4.0-10.0)
[2023-11-10 08:36] LABS: HEMOGLOBIN A1c 5.3 % (4.0-6.0)
[2023-11-10 08:54] LABS: ALBUMIN 3.9 G/DL (3.2-5.2); ALKALINE PHOSPHATASE 54 U/L (46-116); ALT/SGPT 14 U/L (7.0-40); AST/SGOT < 8 U/L (<34); BILIRUBIN,TOTAL 0.6 MG/DL (0.3-1.2); BLOOD UREA NITROGEN 23 MG/DL (9-23); CARBON DIOXIDE LEVEL 27 MMOL/L (20-31); CHLORIDE LEVEL 106 MMOL/L (98-107); CHOLESTEROL LEVEL 213 MG/DL (<200); CREATININE FOR GFR 0.65 MG/DL (0.55-1.30); GLOMERULAR FILTRATION RATE > 60.0 (>51); GLUCOSE, FASTING 86 MG/DL (60-100); HDL CHOLESTEROL 64.4 MG/DL (>40); NON-HDL-C 148.6 MG/DL; POTASSIUM SERUM 4.1 MMOL/L (3.5-5.1); SODIUM LEVEL 138 MMOL/L (136-145); TOTAL PROTEIN 6.3 G/DL (5.7-8.2); TRIGLYCERIDES LEVEL 188 MG/DL (<150)
[2023-11-10 08:56] LABS: THYROID STIMULATING HORMONE 1.905 uIU/ML (0.55-4.78)
== END ==
LOC: M RAD 06:35
PROVIDERS: ATTEND Family Medicine
DX: M47.896 Other spondylosis, lumbar region (principal); M54.30 Sciatica, unspecified side; D64.9 Anemia, unspecified; R53.83 Other fatigue

== ENCOUNTER 2024-08-11 19:19 | Emergency (ER) | payer OTHER, SELFPAY ==
[~2024-08-11] VITALS: Ht 152.4 cm; Wt 57.3 kg
[2024-08-11] MEDS ORDERED: PERCOCET 5MG/325MG TAB PO ONE (20:05)
[2024-08-11] MEDS: ONDANSETRON 4MG 2ML VIAL IV ONE (20:34)
[2024-08-11] MEDS: MORPHINE 4 MG/ML 1ML VIAL IV ONE (20:34)
[2024-08-11] MEDS: AMPICILLIN SOD/SULBACTAM SOD 3 GM in DEXTROSE 5% (D5W) MINI-BAG PLU 100 ML IV ONE (20:34)
[2024-08-11] MEDS: LIDOCAINE W/EPINEPHRINE 1% 20ML VIAL SC ONE (21:20)
[2024-08-11] MEDS ORDERED: AMOX875T2 PO (22:07)
[2024-08-11] MEDS ORDERED: PERC5TAB12 PO (22:07)
[2024-08-11 22:13] VITALS: BP 111/61; TEMP 97.1; O2SAT 94
[2024-08-11] MEDS: PERCOCET 5MG/325MG TAB PO ONE (22:24)
== END 2024-08-11 22:29 | disposition home or self-care (01) ==
LOC: M ED 19:19
DX: S82.62XA Displaced fracture of lateral malleolus of left fibula, initial encounter for closed fracture (principal); S91.012A Laceration without foreign body, left ankle, initial encounter; Y92.019 Unspecified place in single-family (private) house as the place of occurrence of the external cause; Y93.9 Activity, unspecified; Y99.9 Unspecified external cause status; W54.0XXA Bitten by dog, initial encounter; F17.210 Nicotine dependence, cigarettes, uncomplicated; Z88.5 Allergy status to narcotic agent; Z79.2 Long term (current) use of antibiotics; Z79.899 Other long term (current) drug therapy
CPT/HCPCS: 12002; 73610; 96365; 96372; 96375; 99284; J0295; J2405

== ENCOUNTER → 2024-08-17 | Outpatient (CLI) | payer OTHER ==
[~2024-08-17] MED LIST changes: +AMOX875T2 PO; +PERC5TAB12 PO
[2024-08-17 14:05] LABS: HEMATOCRIT 40.3 % (36.0-47.0); HEMOGLOBIN 13.1 g/dl (12.0-15.5); MEAN CORPUSCULAR HEMOGLOBIN 31.3 pg (27.0-33.0); MEAN CORPUSCULAR HGB CONC 32.5 g/dl (32.0-36.5); MEAN CORPUSCULAR VOLUME 96.4 fl (80.0-96.0); PLATELET COUNT, AUTOMATED 276 10^3/uL (150-450); RED BLOOD COUNT 4.18 10^6/uL (4.00-5.40); WHITE BLOOD COUNT 8.4 10^3/uL (4.0-10.0)
[2024-08-17 14:23] LABS: ERYTHROCYTE SEDIMENTATION RATE 31 mm/hr (0-30)
== END ==
LOC: M LAB 11:55
PROVIDERS: ATTEND Physician Assistant
DX: S82.831A Other fracture of upper and lower end of right fibula, initial encounter for closed fracture (principal); W54.0XXA Bitten by dog, initial encounter; Y92.9 Unspecified place or not applicable

== ENCOUNTER → 2024-09-27 | Outpatient (CLI) | payer OTHER | LOC: M SOG 07:50 | PROVIDERS: ATTEND Physician Assistant | DX: S82.831D Other fracture of upper and lower end of right fibula, subsequent encounter for closed fracture with routine healing (principal); Z53.9 Procedure and treatment not carried out, unspecified reason ==

== ENCOUNTER → 2024-10-11 | Outpatient (CLI) | payer OTHER | LOC: M SOG 07:14 | PROVIDERS: ATTEND Physician Assistant | DX: S82.831D Other fracture of upper and lower end of right fibula, subsequent encounter for closed fracture with routine healing (principal); Z53.9 Procedure and treatment not carried out, unspecified reason ==